=== PATIENT | female | born 1960 | race Caucasian/White ===

== ENCOUNTER 2020-01-30 11:00 | Outpatient (RCR) | payer OTHER, SELFPAY ==
[2020-01-30 10:58] VITALS: BMI 31.4
== END 2020-03-25 08:07 | disposition home or self-care (01) ==
LOC: ANHDMC 11:00
PROVIDERS: PCP Internal Medicine; Visit Provider Internal Medicine
DX: E66.9 Obesity, unspecified (principal); Z71.89 Other specified counseling; Z71.3 Dietary counseling and surveillance
CPT/HCPCS: 97802; G0108

== ENCOUNTER 2020-04-30 09:15 | Outpatient (RCR) | payer OTHER, SELFPAY ==
[2020-04-30 08:09] VITALS: BMI 29.9
== END 2020-04-30 17:09 | disposition home or self-care (01) ==
LOC: ANHDMC 09:15
PROVIDERS: PCP Internal Medicine; Visit Provider Internal Medicine
DX: E11.69 Type 2 diabetes mellitus with other specified complication (principal); E66.9 Obesity, unspecified; Z68.31 Body mass index [BMI] 31.0-31.9, adult; Z71.3 Dietary counseling and surveillance; Z71.89 Other specified counseling
CPT/HCPCS: 97803; G0108

== ENCOUNTER 2020-09-03 14:15 | Outpatient (RCR) | payer OTHER, SELFPAY | END 2020-09-03 16:02 | disposition home or self-care (01) | LOC: ANHDMC 14:15 | PROVIDERS: PCP Internal Medicine; Visit Provider Internal Medicine | DX: E11.69 Type 2 diabetes mellitus with other specified complication (principal); E78.5 Hyperlipidemia, unspecified; Z71.89 Other specified counseling | CPT/HCPCS: G0108 ==